=== PATIENT | male | born 1955 | race Caucasian/White ===

== ENCOUNTER 2016-04-27 16:51 | Emergency (ER) | payer OTHER, MEDICARE ==
[2016-04-27 16:46] LABS: BASO % 0.1 % (0-2); EOS % 0.1 % (0-7); HCT-HEMATOCRIT 39.5 % (36.0-53.5); HGB-HEMOGLOBIN 13.8 gm/dl (13.5-17.0); IMMATURE GRANULOCYTES ABSOLUTE 0.02 tho/cmm (0-0.03); IMMATURE GRANULOCYTES PERCENT 0.1 % (0-0.3); LYMPH % 5.3 % (20-45); LYMPH ABSOLUTE COUNT 0.8 tho/cmm (0.8-4.5); MCH (MEAN CORPUSCULAR HGB) 30.9 pg (28.0-32.0); MCHC MEAN CORPUSCULAR HGB CONC 34.9 % (32.0-36.0); MCV (MEAN CELL VOLUME) 88.4 fl (82.0-96.0); MEAN PLATELET VOLUME 9.2 cmc (9.4-12.4); MONO % 8.9 % (0-12); MONOCYTE ABSOLUTE COUNT 1.3 tho/cmm (0.0-1.2); NEUTROPHIL ABSOLUTE COUNT 12.7 tho/cmm (1.6-8.0); NEUTROPHIL-AUTOMATED 12.7 tho/cmm (1.6-8.0); NEUTROPHILS % 85.5 % (40-80); PLATELET COUNT 240 tho/cmm (150-450); RED BLOOD COUNT 4.47 mil/cmm (4.40-5.70); WHITE BLOOD COUNT 14.8 tho/cmm (4.0-10.0)
[~2016-04-27 16:51] MED LIST: BACLOFEN10 MG PO; BENADRYL25 MG PO; CALCIUM500 M3 PO; CIPRO500 MG PO; CIPROFLOXACIN500 M2 PO; COLACE100 M1 PO; COLACE100 MG PO; COUMADIN3 MG PO; CULTURELLE1 CAP PO; DITROPAN5 M1 PO; DITROPAN5 MG PO; HYDROCORTISON28.4 G2 TP; LEVOTHYROXINE75 MCG PO; MILK OF MA400 MG/5 M PO; MULTIVITAMIN1 TAB PO; OXYBUTYNIN CHLOR5 M2 PO; OXYBUTYNIN CHLOR5 MG PO; SALMON OIL PO; TROSPIUM CHLORI20 M1 PO; TYLENOL325 MG PO; VIBRAMYCIN100 MG PO; VITAMIN D5000 UNIT PO
[2016-04-27 16:59] LABS: ANION GAP 13 mmol/L (0-20); BLOOD UREA NITROGEN 11 mg/dl (6-24); CALCIUM 8.5 mg/dl (8.5-10.5); CARBON DIOXIDE-VENOUS 25 mmol/L (22-32); CHLORIDE 95 mmol/l (96-110); CREATININE 0.72 mg/dl (0.60-1.30); GLUCOSE 95 mg/dL (70-110); POTASSIUM 3.9 mmol/L (3.7-5.1); SODIUM 129 mmol/L (135-145); eGFR VALUE FOR BLACK >90 mL/Min
[2016-04-27 17:05] LABS: URINE BILIRUBIN NEGATIVE (NEG); URINE BLOOD MODERATE (NEG); URINE GLUCOSE (UA) NEGATIVE (NEG); URINE KETONE NEGATIVE (NEG); URINE LEUKOCYTE ESTERASE POSITIVE (NEG); URINE NITRITE NEGATIVE (NEG); URINE PROTEIN NEGATIVE (NEG)
[2016-04-27 17:06] LABS: URINE APPEARANCE HAZY; URINE COLOR YELLOW
[2016-04-27 17:14] LABS: URINE BACTERIA 4+; URINE WBC 40-50 /[HPF] (0-5)
[2016-04-27 17:18] LABS: URINE EPITHELIAL CELLS 0-1 /[HPF] (0-10)
[2016-04-27 17:20] LABS: PROCALCITONIN <0.05 ng/ml (0.05-0.09)
== END 2016-04-27 20:44 | disposition other institution (70) ==
LOC: EDMED 16:51
PROVIDERS: Emergency Medicine
DX: A41.9 Sepsis, unspecified organism (principal); N39.0 Urinary tract infection, site not specified; J10.1 Influenza due to other identified influenza virus with other respiratory manifestations
CPT/HCPCS: J1335; J7030